=== PATIENT | male | born 1950 | race Caucasian/White ===

== ENCOUNTER → 2020-04-29 | Outpatient (CLI) | payer OTHER, BC ==
[~2020-04-29] VITALS: Ht 165.1 cm; Wt 72.1 kg
[~2020-04-29] MED LIST: ASA81BEC PO; BENAZEPRIL HCL20 MG PO; CALCIUM + VITA1 EACH PO; CENTRUM SILVER1 EAC4 PO; COQ-10100 MG PO; FAMOTIDINE 20 M20 MG PO; FISH OIL 1,0001 EAC9 PO; FOLIC ACID1 MG PO; GELATIN PO; MAGNESIUM400 MG PO; NAPROXEN SODIU220 M2 PO; NORVASC5 MG PO; PRAVACHOL40 MG PO; TORADOL 10 MG T10 MG PO; VITAMIN C1000 MG PO; ZINC PO
[2020-04-29 09:23] VITALS: BP 128/89
--- NOTE | 2020-04-29 09:57 | NUR ---
[facility] Assessment: 1. 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 Height: 5 ft. 5 in. 165.1 cm. Weight: 159.0 lb. oz. 72.122 kg. Patient's BMI: 26.5 3. Vital Signs: BP: 128/89 Pulse: 114 Resp: 16 Temp: 02 Sat: 98 ECG Mon: 4. Pain Intensity: 1 TODAY 5. Fall Risk: Dizziness: Y Needs help standing or walking: N Fallen in the last 3 months: N Fall risk comments: 6. Patient on Blood Thinner: None 7. History of Hypertension: Y 8. Opioid Therapy greater than 6 weeks: N Opiate Contract Signed: 9. Risk Assessment Tool Provided: 10. Functional Assessment Tool: 11. Recreational Drug Use: Never Drug Type: Tobacco Use: Current Every Day Smoker Tobacco Type: Cigarettes Amount or Packs/day: 3/4 How Many Years: 40 Alcohol Use: No Frequency: Quant:
== END | disposition home or self-care (01) ==
LOC: PAIN 06:49
PROVIDERS: ATTEND Anesthesiology Pain Medicine
DX: M54.16 Radiculopathy, lumbar region (principal); G89.29 Other chronic pain; I10 Essential (primary) hypertension; Z98.890 Other specified postprocedural states; Z79.899 Other long term (current) drug therapy; Z87.442 Personal history of urinary calculi; Z98.52 Vasectomy status; Z90.49 Acquired absence of other specified parts of digestive tract; Z88.8 Allergy status to other drugs, medicaments and biological substances